=== PATIENT | female | born 1995 | race Caucasian/White ===

== ENCOUNTER → 2018-02-07 | Emergency (ER) | END | disposition home or self-care (01) ==

== ENCOUNTER 2018-10-21 20:33 | Emergency (ER) | payer SELFPAY ==
[~2018-10-21] VITALS: Wt 73.2 kg
[~2018-10-21 20:33] MED LIST: LEVE-5 PO
[2018-10-21] MEDS ORDERED: SOD CHLORIDE 0.9% 1,000 ML IV STA (23:12)
[2018-10-21] MEDS ORDERED: LORAZEPAM 2 MG INJ IV STA (23:12)
[2018-10-22] MEDS ORDERED: KETOROLAC 15 MG INJ IV STA (01:26)
[2018-10-22] MEDS ORDERED: CEFTRIAXONE 1 GM/50 ML (PMX) 50 ML IVPB ONE (01:30)
[2018-10-22] MEDS ORDERED: TRAM50TA2 PO (01:43)
[2018-10-22] MEDS ORDERED: CEPH-443 PO (01:43)
--- NOTE | 2018-10-22 01:57 | ERD ---
ER Documentation Chief Complaint Chief Complaint seizure this am. vomiting and abd pain after seizure. see nurse note. HPI This is a 22-year-old female with a seizure disorder morning. Patient has history of seizures. Takes Keppra twice a day. States she is been compliant with her seizure medication. She also complains of having some abdominal pain and one episode of vomiting after the seizure. She had urgency and frequency of urination as well. Denies fevers or chills. Denies any nausea vomiting currently. Denies any other current issues as a walk-in ROS All systems reviewed and are negative except as per history of present illness. Medications Home Meds Active Scripts Tramadol HCl (Tramadol HCl) 50 Mg Tablet, 50 MG PO Q4 PRN for PAIN, #20 TAB Prov:TANI HORNE 10/22/18 Cephalexin* (Keflex*) 500 Mg Capsule, 500 MG PO QID for 5 Days, CAP Prov:TANI HORNE 10/22/18 Levetiracetam* (Keppra*) 500 Mg Tablet, 500 MG PO BID for 30 Days, TAB Prov:GHADA VANEGAS MD 02/07/18 Allergies Allergies: Coded Allergies: No Known Drug Allergy (Verified Allergy, Unknown, 10/21/18) PMhx/Soc Medical and Surgical Hx: pt denies Surgical Hx History of Surgery: No Anesthesia Reaction: No Hx Neurological Disorder: Yes (SEIZURES) Hx Respiratory Disorders: No Hx Cardiac Disorders: No Hx Psychiatric Problems: No Hx Miscellaneous Medical Probl: No Hx Alcohol Use: No Hx Substance Use: Yes (marijuana) Hx Tobacco Use: No Smoking Status: Never smoker Physical Exam Vitals Vital Signs Date Temp Pulse Resp B/P (MAP) Pulse Ox O2 O2 Flow FiO2 Time Delivery Rate 10/22/18 61 17 92/46 (61) 100 Room Air 00:41 10/21/18 99.8 52 20 114/62 100 20:42 (79) Physical Exam Const: No acute distress Head: Atraumatic Eyes: Normal Conjunctiva ENT: Normal External Ears, Nose and Mouth. Neck: Full range of motion. No meningismus. Resp: Clear to auscultation bilaterally Cardio: Regular rate and rhythm, no murmurs Abd: Soft, non tender, non distended. Normal bowel sounds Skin: No petechiae or rashes Back: No midline or flank tenderness Ext: No cyanosis, or edema Neur: Awake and alert Psych: Normal Mood and Affect Result Diagram: 10/21/18232210/21/182322 Results 24 hrs Laboratory Tests Test 10/21/18 23:23 10/21/18 23:30 10/21/18 23:32 White Blood Count 11.9 10^3/ul Red Blood Count 5.38 10^6/ul Hemoglobin 13.3 g/dl Hematocrit 42.0 % Mean Corpuscular Volume 78.1 fl Mean Corpuscular Hemoglobin 24.7 pg Mean Corpuscular Hemoglobin Concent 31.7 g/dl Red Cell Distribution Width 14.4 % Platelet Count 334 10^3/UL Mean Platelet Volume 11.9 fl Immature Granulocytes % 0.400 % Neutrophils % 88.5 % Lymphocytes % 8.1 % Monocytes % 2.9 % Eosinophils % 0.0 % Basophils % 0.1 % Nucleated Red Blood Cells % 0.0 /100WBC Immature Granulocytes # 0.050 10^3/ul Neutrophils # 10.6 10^3/ul Lymphocytes # 1.0 10^3/ul Monocytes # 0.4 10^3/ul Eosinophils # 0.0 10^3/ul Basophils # 0.0 10^3/ul Nucleated Red Blood Cells # 0.0 10^3/ul Urine Color ELO Urine Clarity TURBID Urine pH 5.0 Urine Specific [place] 1.028 Urine Ketones 2+ mg/dL Urine Nitrite NEGATIVE mg/dL Urine Bilirubin NEGATIVE mg/dL Urine Urobilinogen NEGATIVE mg/dL Urine Leukocyte Esterase NEGATIVE Chidi/ul Urine Microscopic RBC 21 /HPF Urine Microscopic WBC 10 /HPF Urine Squamous Epithelial Cells FEW /HPF Urine Bacteria FEW /HPF Urine Mucus MANY /HPF Urine Hemoglobin 2+ mg/dL Urine Glucose NEGATIVE mg/dL Urine Total Protein NEGATIVE mg/dl Sodium Level 141 mmol/L Potassium Level 3.6 mmol/L Chloride Level 107 mmol/L Carbon Dioxide Level 19 mmol/L Anion Gap 15 Blood Urea Nitrogen 15 mg/dl Creatinine 0.70 mg/dl Est Glomerular Filtrat Rate mL/min > 60 mL/min Glucose Level 117 mg/dl Calcium Level 10.6 mg/dl Troponin I < 0.012 ng/ml Lipase 37 U/L Urine Opiates Screen Negative Urine Barbiturates Negative Urine Amphetamines Screen Negative Urine Benzodiazepines Screen Negative Urine Cocaine Screen Negative Urine Cannabinoids Positive Ethyl Alcohol Level < 10.0 mg/dl Bedside Glucose 105 mg/dL POC Beta HCG, Qualitative NEGATIVE Current Medications Medications Dose Sig/[place] Start Time Status Last (Trade) Ordered Route PRN Stop Time Admin Dose Reason Admin Sodium 1,000 ml @ Q1H STAT 10/21/18 DC 10/21/18 Chloride 1,000 mls/hr IV 23:12 10/22/18 23:45 00:11 Lorazepam 1 mg ONCE STAT 10/21/18 DC 10/21/18 (Ativan) IV 23:12 10/21/18 23:45 23:14 Ketorolac 15 mg ONCE STAT 10/22/18 DC 10/22/18 Tromethamine IV 01:26 10/22/18 01:33 (Toradol) 01:27 Ceftriaxone 50 ml @ ONCE ONCE 10/22/18 10/22/18 Sodium 100 mls/hr IVPB 01:30 10/22/18 01:40 01:59 Procedures/MDM This is a very pleasant 22-year-old female comes in with a recurrent seizure disorder. At this point she is clinically stable. Also has evidence of urinary tract infection.. Dosed with Rocephin. Will be discharged home with Keflex. Tramadol for pain. Patient's gastrointestinal symptoms have stabilized while in the department. No evidence of severe dehydration, sepsis, or surgical abdomen. Extensive discussion with family and patient that occult disease cannot be ruled out. 8 hour recheck for repeat abdominal exam is planned. Departure Diagnosis: Primary Impression: Seizure disorder Additional Impression: Urinary tract infection Urinary tract infection type: site unspecified Hematuria presence: without hematuria Qualified Codes: N39.0 - Urinary tract infection, site not specified Condition: Stable Patient Instructions: Understanding Urinary Tract Infections (UTIs), Seizure, Recurrent [Adult] TANI HORNE Oct 22, 2018 01:57
[2018-10-22 02:27] VITALS: BP 105/61; PULSE 74; RESP 17
== END 2018-10-22 02:25 | disposition home or self-care (01) ==
LOC: E/R 20:33
DX: G40.909 Epilepsy, unspecified, not intractable, without status epilepticus (principal); N39.0 Urinary tract infection, site not specified
CPT/HCPCS: 36415; 70450; 71045; 80048; 80307; 81001; 81025; 82962; 83690; 84484; 85025; 93005; 96374; 96375; 99285; J0696; J1885; J2060; J7030